=== PATIENT | male | born 1985 | race African-American/Black ===

== ENCOUNTER 2018-08-03 14:20 | Emergency (ER) | payer OTHER ==
[~2018-08-03] VITALS: Ht 175.3 cm; Wt 88.2 kg
[2018-08-03 14:25] VITALS: BP 132/82
--- NOTE | 2018-08-03 14:38 | NUR ---
PATIENT PRESENTS TO ED WITH C/O INTERMITTENT MID ABDOMINAL PAIN AND DIZZINESS X 1 MONTH . +NAUSEA, +VOMITING. DENIES DIARRHEA OR FEVER. PATIENT STATES PAIN OF 6/10 AT THIS TIME; VSS; PATIENT POSITIONED FOR COMFORT; HOB ELEVATED; BEDRAILS UP X1; BED DOWN. ER MD TO EVALUATE PT.
[2018-08-03 14:48] LABS: APPEARANCE,URINE CLEAR (CLEAR); BILIRUBIN,URINE NEGATIVE (NEGATIVE); BLOOD, URINE NEGATIVE (NEGATIVE); COLOR,URINE YELLOW (YELLOW); LEUKOCYTE ESTERASE ,URINE NEGATIVE (NEGATIVE); NITRITE, URINE NEGATIVE (NEGATIVE); PH,URINE 8.5 (5.0-9.0); UGLUCOSE NEGATIVE (NEGATIVE)
--- NOTE | 2018-08-03 15:17 | NUR ---
DR LARA AT BEDSIDE EVALUATING PT.
--- NOTE | 2018-08-03 16:01 | NUR ---
PT TAKEN TO CT
--- NOTE | 2018-08-03 17:06 | NUR ---
Patient discharged with v/s stable. Written and verbal after care instructions given and explained. Patient alert, oriented and verbalized understanding of instructions. Ambulatory with steady gait. All questions addressed prior to discharge. ID band removed. Patient advised to follow up with PMD. Rx of MINERAL OIL, LACTULOSE 10 GM/15ML given. Patient educated on indication of medication including possible reaction and side effects. Opportunity to ask questions provided and answered.
[2018-08-03 17:07] VITALS: BP 101/67
== END 2018-08-03 17:06 | disposition home or self-care (01) ==
LOC: MED 14:20
DX: R10.31 Right lower quadrant pain (principal); R11.2 Nausea with vomiting, unspecified; R63.0 Anorexia
CPT/HCPCS: 81003; 99284